=== PATIENT | male | born 1965 ===

== ENCOUNTER 2018-07-24 14:22 | Emergency (ER) | payer SELFPAY ==
[2018-07-24 14:31] VITALS: PULSE 73; RESP 20; TEMP 97.4; O2SAT 96
[2018-07-24 14:35] VITALS: BP 126/87
--- NOTE | 2018-07-24 15:36 | C.PDOC ---
History Of Present Illness 53 y/o male comes in complaining of left upper buttock pain since 2 months ago. Patient states that he had lifted something heavy at work and felt a pulling and pinching sensation in his left upper buttock. Since then, he states the pain has radiated down to his left leg and into his calf. Patient has been taking motrin 600 mg daily in the mornings with some relief but he states it only lasts until 3pm. Patient reports he is nervous about taking more motrin and doesnt know how much more he can take. Denies any change in urination, abdominal pain, vomiting, fever, or chest pain. Time Seen by Provider: 07/24/18 14:50 Chief Complaint (Nursing): Back Pain History Per: Patient History/Exam Limitations: no limitations Onset/Duration Of Symptoms: Days Current Symptoms Are (Timing): Still Present Past Medical History Reviewed: Historical Data, Nursing Documentation, Vital Signs Vital Signs: Last Vital Signs Temp 97.4 F L 07/24/18 14:28 Pulse 73 07/24/18 14:28 Resp 20 07/24/18 14:28 BP 126/87 07/24/18 14:35 Pulse Ox 96 07/24/18 14:28 - Medical History PMH: Pancreatitis Family History: States: No Known Family Hx - Social History Hx Alcohol Use: Yes (2 mos ago) Hx Substance Use: No Review Of Systems Constitutional: Negative for: Fever, Chills Cardiovascular: Negative for: Chest Pain Respiratory: Negative for: Shortness of Breath Gastrointestinal: Negative for: Vomiting, Abdominal Pain Genitourinary: Negative for: Dysuria, Hematuria Musculoskeletal: Positive for: Other (Left upper buttock pain) Skin: Negative for: Rash Neurological: Negative for: Weakness, Numbness Physical Exam - Physical Exam Appears: Non-toxic, No Acute Distress Skin: Warm, Dry Head: Atraumatic, Normacephalic Eye(s): bilateral: Normal Inspection Oral Mucosa: Moist Neck: Normal ROM, Supple Chest: Symmetrical Cardiovascular: Rhythm Regular, No Murmur Respiratory: Normal Breath Sounds, No Rales, No Rhonchi, No Wheezing Back: No CVA Tenderness, No Paraspinal Tenderness, Straight Leg Raising (+straight leg raising of L leg), Other (Good ROM of lower back; Patient able to bend forward and touch toes without pain; no rash) Extremity: Bilateral: Normal Color And Temperature Neurological/Psych: Oriented x3, Normal Speech, Normal Motor, Normal Sensation ED Course And Treatment O2 Sat by Pulse Oximetry: 96 (RA) Pulse Ox Interpretation: Normal Medical Decision Making Medical Decision Making: Patient appears to have sciatica. Patient has no insurance and has not been taking motrin and been underdosing himself. Explained to patient how to take motrin and showed some stretches he should do. Disposition Counseled Patient/Family Regarding: Diagnosis, Need For Followup, Rx Given - Disposition Referrals: Georgette George MD [Staff Provider] - Disposition: HOME/ ROUTINE Disposition Time: 15:34 Condition: STABLE Prescriptions: Cyclobenzaprine [Flexeril] 10 mg PO HS #10 tab Ibuprofen [Motrin Tab] 800 mg PO TID PRN #21 tab PRN Reason: Pain, Moderate (4-7) Instructions: Sciatica (DC), Sciatica Exercises Forms: General Discharge Instructions, [facility] (Romanian), Work Excuse - Clinical Impression Clinical Impression: Sciatica of left side - PA / REIMBURSEMENT MANAGER / Resident Statement MD/DO has reviewed & agrees with the documentation as recorded. - Scribe Statement The provider has reviewed the documentation as recorded by the Scribe Brittney Joshua All medical record entries made by the Briannaibe were at my direction and personally dictated by me. I have reviewed the chart and agree that the record accurately reflects my personal performance of the history, physical exam, medical decision making, and the department course for this patient. I have also personally directed, reviewed, and agree with the discharge instructions and disposition.
== END 2018-07-24 16:01 | disposition home or self-care (01) ==
LOC: C.ER 14:22
DX: M54.32 Sciatica, left side (principal)